=== PATIENT | female | born 1995 | race Caucasian/White ===

== ENCOUNTER 2018-01-05 23:05 | Emergency (ER) | payer OTHER ==
[~2018-01-05] VITALS: Ht 152.4 cm; Wt 56.3 kg
[2018-01-05 23:16] VITALS: BP 132/90
--- NOTE | 2018-01-05 23:18 | NUR ---
PT STATES BILAT UPPER QUADRANT ABD PAIN RADIATING TO EPIGASTRIC AREA X1 WK. PT STATES NAUSEA WITHOUT VOMITING. PT STATES NORMAL BOWEL MOVEMENTS. PAIN 6/1O INTERMITTENT. SHE STATES EATING COPIUS AMOUNTS OF SPICY FOODS ON A REGULAR BASIS. PT IS AFEBRILE. TACHY AT 111. ER MD AWARE. CONTINUE TO MONITOR.
--- NOTE | 2018-01-05 23:18 | NUR ---
TO BED # 8 AMBULATORY, REPORT GIVEN TO AMY FLORIAN
[2018-01-06] MEDS ORDERED: DICYCLOMINE HCL LIQUID 10 MG/5 ML UDC PO ONE (00:30)
[2018-01-06] MEDS ORDERED: ALUMINUM HYD/MAG/SIMETHICONE 30 ML UDC PO ONE (00:30)
[2018-01-06] MEDS ORDERED: LIDOCAINE VISCOUS 2% 20 ML UDC PO ONE (00:30)
[2018-01-06 01:23] VITALS: BP 134/77
--- NOTE | 2018-01-06 01:23 | NUR ---
Patient discharged with v/s stable. Written and verbal after care instructions given and explained. Patient alert, oriented and verbalized understanding of instructions. Ambulatory with steady gait. All questions addressed prior to discharge. ID band removed. Patient advised to follow up with PMD. Rx of Omeprazole given. Patient educated on indication of medication including possible reaction and side effects. Opportunity to ask questions provided and answered.
== END 2018-01-06 01:23 | disposition home or self-care (01) ==
LOC: MED 23:05
DX: K29.70 Gastritis, unspecified, without bleeding (principal)
CPT/HCPCS: 81002; 81025; 99283

== ENCOUNTER 2019-02-19 16:12 | Emergency (ER) | payer OTHER ==
[~2019-02-19] VITALS: Ht 152.4 cm; Wt 54.4 kg
[2019-02-19 16:21] VITALS: BP 139/89
[2019-02-19 17:08] LABS: BASOPHILS # (AUTO) 0.1 K/uL (0.00-0.22); BASOPHILS % (AUTO) 0.6 % (0.0-2.0); EOSINOPHILS # (AUTO) 0.3 K/uL (0-0.4); EOSINOPHILS % (AUTO) 3.5 % (0.0-4.0); HEMATOCRIT 41.2 % (36-48); HEMOGLOBIN 13.8 g/dL (12.0-16.0); LYMPHOCYTES # (AUTO) 2.4 K/uL (2.5-16.5); LYMPHOCYTES % (AUTO) 28.3 % (20.5-51.1); MEAN CORPUSCULAR HEMOGLOBIN 30 pg (27-31); MEAN CORPUSCULAR HGB CONC 34 g/dL (33-37); MEAN CORPUSCULAR VOLUME 88.1 fL (80-94); MONOCYTES # (AUTO) 0.6 K/uL (0.8-1.0); MONOCYTES % (AUTO) 6.5 % (1.7-9.3); NEUTROPHILS # (AUTO) 5.2 K/uL (1.8-7.7); NEUTROPHILS % (AUTO) 61.1 % (42.2-75.2); PLATELET COUNT (AUTO) 241 K/uL (140-450); RED BLOOD CELL COUNT(AUTO) 4.67 MIL/uL (4.20-5.40); WHITE BLOOD COUNT (AUTO) 8.5 K/uL (4.8-10.8)
[2019-02-19 17:29] LABS: ANION GAP 14.2 (8-16); CARBON DIOXIDE 24.9 mmol/L (21-32); CREATININE 0.7 mg/dL (0.6-1.3); POTASSIUM 4.1 mmol/L (3.5-5.1)
[2019-02-19 17:46] LABS: TOTAL BILIRUBIN 0.5 mg/dL (0.0-1.0)
[2019-02-19 18:01] LABS: ALBUMIN 3.9 g/dL (3.4-5.0)
[2019-02-19 18:19] VITALS: BP 122/72
== END 2019-02-19 18:19 | disposition home or self-care (01) ==
LOC: MED 16:12
DX: K29.70 Gastritis, unspecified, without bleeding (principal); R06.00 Dyspnea, unspecified; R03.0 Elevated blood-pressure reading, without diagnosis of hypertension; Z90.49 Acquired absence of other specified parts of digestive tract
CPT/HCPCS: 36415; 80053; 81002; 81025; 83690; 84484; 85025; 93005; 99284

== ENCOUNTER 2020-10-07 22:19 | Emergency (ER) | payer OTHER ==
[~2020-10-07] VITALS: Ht 152.4 cm; Wt 50.8 kg
[2020-10-07 22:26] VITALS: BP 124/74
--- NOTE | 2020-10-07 22:26 | NUR ---
TO BED AMBULATORY
--- NOTE | 2020-10-07 22:52 | NUR ---
PATIENT BIB SELF FOR C/O 12/29 HEADACHE. PATIENT REPORTS SHE WAS REACHING INSIDE HER CAR TO GRAB GROCERIES WHEN SHE HIT THE BACK OF HER HEAD TRYING TO BACK UP. PATIENT DENIES LOC. PERRLA NOTED. PATIENT REPORTS PAIN IS ON LEFT SIDE OF HEAD, IT DOES NO RADIATE. PATIENT DENIES ANY OTC PAIN MEDICATION, REPORTS ICE PROVIDED SOME RELIEF EARLIER. PATIENT REPORTS "I JUST FELT SLEEPY AFTER BUT MY MOM WOULDNT LET ME SLEEP." SEE COMPLETE ASSESSMENT FOR FURTHER DETAILS. MED HX: DENIES ALLERGIES: NKA
--- NOTE | 2020-10-07 23:07 | NUR ---
ERMD DEANNA AT BEDSIDE.
[2020-10-07] MEDS ORDERED: IBUPROFEN 600 MG TAB PO ONE (23:20)
[2020-10-07] MEDS ORDERED: ACETAMINOPHEN EXTRA STRENGTH 500 MG TAB PO ONE (23:20)
[2020-10-07 23:36] VITALS: BP 124/74
--- NOTE | 2020-10-07 23:36 | NUR ---
Patient discharged with v/s stable. Written and verbal after care instructions given and explained. Patient verbalized understanding. Ambulatory with steady gait. All questions addressed prior to discharge. Advised to follow up with PMD.
== END 2020-10-07 23:36 | disposition home or self-care (01) ==
LOC: MED 22:19
DX: S06.0X0A Concussion without loss of consciousness, initial encounter (principal); R42 Dizziness and giddiness; W22.8XXA Striking against or struck by other objects, initial encounter; Y93.89 Activity, other specified; Y92.810 Car as the place of occurrence of the external cause; Y99.8 Other external cause status
CPT/HCPCS: 99283